=== PATIENT | male | born 1955 | race American Indian/Alaskan Native ===

== ENCOUNTER 2021-05-27 07:16 | Day surgery (SDC) | payer MEDICARE ==
[2021-05-27] MEDS ORDERED: CLOPIDOGREL 75 MG TAB PO NR (07:47)
[2021-05-27] MEDS ORDERED: SODIUM CHLORIDE 0.9% 500 ML 500 ML IV SCH (08:00)
[2021-05-27 08:02] LABS: Basophils # (Auto) 0.1 K/mm3 (0.0-0.1); Basophils % (Auto) 0.8 % (0.0-1.8); Eosinophils # (Auto) 0.4 K/mm3 (0.0-0.4); Eosinophils % (Auto) 4.4 % (0.0-4.3); Hemoglobin 14.3 gm/dl (11.8-15.2); Lymphocytes # (Auto) 1.7 K/mm3 (1.2-5.4); Lymphocytes % (Auto) 20.4 % (13.4-35.0); Mean Corpuscular HGB Conc 32 % (32-34); Mean Corpuscular Volume 87 fl (84-94); Monocytes # (Auto) 0.6 K/mm3 (0.0-0.8); Monocytes % (Auto) 6.7 % (0.0-7.3); Platelet Count 205 K/mm3 (140-440); Red Blood Count 5.18 M/mm3 (3.65-5.03); Red Cell Distribution Width 14.3 % (13.2-15.2)
[2021-05-27 08:09] LABS: INR 0.94 (0.87-1.13)
[2021-05-27 08:10] LABS: BUN/Creatinine Ratio 10; Blood Urea Nitrogen 14 mg/dL (9-20); Calcium 9.3 mg/dL (8.4-10.2); Hemolysis Index 5
[2021-05-27] MEDS ORDERED: HEPARIN/NS 5000 UNIT/500ML 1,000 ML IR ONE (08:15)
[2021-05-27] MEDS ORDERED: NITROGLYCERIN SYRINGE 3 ML ONE (08:16)
[2021-05-27] MEDS ORDERED: HEPARIN 10,000 UNITS/10 ML VIAL ONE ×2 (08:16→10:38)
[2021-05-27] MEDS ORDERED: VERAPAMIL 5 MG/2 ML INJ ONE ×2 (08:16→08:58)
[2021-05-27] MEDS: MIDAZOLAM 2 MG/2 ML INJ ONE ×2 (08:21→10:53)
[2021-05-27] MEDS: fentaNYL 100 MCG/2 ML INJ ONE ×2 (08:22→10:54)
[2021-05-27] MEDS: LIDOCAINE (2%) 20 MG/1 ML VIAL 20 ML MDV INFILTRATI ONE ×2 (08:22→10:55)
[2021-05-27] MEDS ORDERED: SODIUM CHLORIDE 0.9% 1000 ML 1,000 ML ONE (09:29)
[2021-05-27] MEDS ORDERED: SODIUM CHLORIDE 0.9% 1000 ML 1,000 ML IV SCH (09:30)
--- NOTE | 2021-05-27 11:04 | Electrocardiograph Report ---
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 Correlate clinically. Electronically Signed On 05-27-2021 11:03:47 EST by Stanford Garcia
[2021-05-27] MEDS: hydrALAZINE 20 MG/1 ML INJ ONE ×2 (11:10→11:37)
[2021-05-27] MEDS ORDERED: POTASSIUM CHLORIDE ER 20 MEQ TAB PO ONE ×2 (11:25→11:58)
--- NOTE | 2021-05-27 11:43 | Cardiac Catherization Report ---
DATE OF SERVICE: 05/27/2021 CARDIAC CATHETERIZATION REPORT REASON FOR PROCEDURE: Chest pain and abnormal thallium stress test. The patient is a 66-year-old man with multiple comorbidities including a previous stroke, which has resulted in aphasia and dense right hemiparesis. He also has coronary artery disease and had a coronary stent implanted in proximal LAD more than 5 years ago. He is referred for diagnostic cardiac catheterization for the finding of an abnormal outpatient thallium stress test. Prior to the procedure, preprocedure labs showed a creatinine of 1.4. Risks and benefits of the procedure including elevated risk of contrast nephropathy discussed with the patient and his spouse, who is at bedside, and they consent to proceed. PROCEDURES PERFORMED: 1. Left heart catheterization. 2. Selective left and right coronary angiography. 3. Left ventricular angiography. 4. Sedation time start 10:54, end 11:09. DESCRIPTION OF PROCEDURE: The patient was prepped and draped in a sterile fashion after informed consent as noted above. The right femoral artery was entered using Seldinger technique followed by placement of a 6-Polish sheath. Selective left and right coronary angiography was performed using #4 right and #4 left Angeli catheters. A pigtail catheter was used for left ventricular angiography. The catheters were then removed, sheath removed and hemostasis achieved using manual compression. The patient was returned to the postprocedure unit in stable condition. There were no complications. FINDINGS: HEMODYNAMICS: Left ventricular end-diastolic pressure was 23, following coronary angiography. Ascending aortic pressure was 183/100. There was no significant pressure gradient on pullback across the aortic valve. CORONARY ANGIOGRAPHY: The left main coronary artery contained mild luminal irregularities in its distal segment. A stent was visible in the proximal LAD. The stented segment was widely patent with minimal to no significant restenosis. Following that, there was diffuse mild atherosclerosis of the rest of the proximal and mid segments of the LAD. Distally, near the apical segment of the LAD, there was a 50% stenosis noted. The first obtuse marginal branch of the circumflex artery was a large vessel that contained mild luminal irregularities. Following this, the AV groove circumflex then continued, terminating in another, medium-sized terminal obtuse marginal. The AV groove vessel at the terminal obtuse marginal contained diffuse mild to moderate atherosclerosis with no significant obstructive lesions. The right coronary artery was dominant. This vessel contained mild ostial narrowing, followed by mild luminal irregularities of its proximal and mid segments. There was normal left ventricular systolic function, ejection fraction 60%-65%. The total contrast used for the procedure was 54 mL of Visipaque. CONCLUSION: 1. Widely patent proximal LAD stent. 2. Otherwise, diffuse mild nonobstructive atherosclerosis as noted above. 3. Normal left ventricular systolic function, ejection fraction 60%-65%. 4. Total contrast used was 54 mL of Visipaque. TID: [id number] RECEIPT: [id number] CA/SAY
--- NOTE | 2021-05-27 12:56 | Discharge Summary ---
Short Stay Discharge Plan Activity: advance as tolerated Weight Bearing Status: Partial Weight Bearing Diet: low fat, low cholesterol, low salt Special Instructions: no heavy lifting (3 days) Follow up with: FILIPE NGO MD [Primary Care Provider] - 7 Days TILA ALARCON MD [Staff Physician] - 7 Days
[2021-05-27] MEDS ORDERED: traMADol 50 MG TAB PO PRN (14:00)
[2021-05-27] MEDS ORDERED: cloNIDine 0.1 MG TAB PO PRN (14:00)
[2021-05-27 16:38] VITALS: BP 149/85
== END 2021-05-27 16:30 | disposition home or self-care (01) ==
LOC: CATHLABREC 07:16
PROVIDERS: ATTEND Internal Medicine Cardiovascular Disease
DX: I25.119 Atherosclerotic heart disease of native coronary artery with unspecified angina pectoris (principal); I49.3 Ventricular premature depolarization; I10 Essential (primary) hypertension; E78.00 Pure hypercholesterolemia, unspecified; G47.30 Sleep apnea, unspecified; Z98.61 Coronary angioplasty status; Z87.891 Personal history of nicotine dependence; Z79.899 Other long term (current) drug therapy; Z98.890 Other specified postprocedural states
CPT/HCPCS: 36415; 80048; 85025; 85610; 85730; 93005; 93458; 99156; C1894; J0360; J1644; J1815; J2250; J3010; J3490; J7030; Q0162; Q9967